=== PATIENT | male | born 1960 | race Caucasian/White ===

== ENCOUNTER 2024-04-26 16:03 | Emergency (ER) | payer BC, SELFPAY ==
[2024-04-26 16:13] VITALS: BP 146/100
[2024-04-26 17:07] LABS: ALT (SGPT) 54 U/L (0-50); AST (SGOT) 47 U/L (17-59); Albumin 4.6 g/dl (3.5-5.0); Alkaline Phosphatase 74 U/L (38-126); Blood Urea Nitrogen 13 mg/dl (9-20); Calcium 9.9 mg/dl (8.4-10.2); Carbon Dioxide 33 mmol/L (22-30); Chloride 97 mmol/L (98-107); Glucose 160 mg/dl (70-99); Potassium 5.1 mmol/L (3.5-5.1); Sodium 138 mmol/L (135-145); Total Bilirubin 0.9 mg/dl (0.2-1.3); Total Protein 7.5 g/dl (6.3-8.2); eGFR > 60.00
[2024-04-26 17:18] LABS: NT-proBNP < 20.0 pg/ml; Troponin I < 0.012 ng/ml
[2024-04-26 17:38] LABS: % Basophils 0.4 % (0-2); % Eosinophils 1.4 % (0-6); % Immature Granulocytes 0.6 % (0-0.5); % Lymphocytes 30.1 % (20.5-51.1); % Monocytes 7.5 % (1.7-9.3); Absolute Eosinophils 0.1 10^3/uL (0-0.7); Absolute Lymphocytes 1.5 10^3/uL (1.2-3.4); Absolute Monocytes 0.4 10^3/uL (0.1-0.6); Absolute Neutrophils 3.1 10^3/uL (1.4-6.5); Hematocrit 48.8 % (39.0-52.0); Hemoglobin 16.3 g/dL (13.0-18.0); Mean Corp Hgb Conc. 33.4 g/dL (33.0-37.0); Mean Corpuscular Volume 92.8 fL (80.0-94.0); Nucleated Red Blood Cells % 0 % (-); Platelet Count 195 10^3/uL (130-400); Red Blood Cell Count 5.26 10^6/uL (4.70-6.10); Red Cell Dist. Width 13.7 % (11.5-14.5); White Blood Cell Count 5.1 10^3/uL (4.8-10.8)
[2024-04-26] MEDS: ANCEF 10 IV (19:45)
--- NOTE | 2024-04-26 19:55 | ED.GENMED ---
History of Present Illness
General
Chief Complaint: Swelling
Time Seen by Provider: 04/26/24 18:55
History of Present Illness
History of Present Illness:
63-year-old male presents to the emergency department for evaluation of bilateral leg swelling associated with red discoloration and pain. He notes that he has been increasingly sedentary recently due to chronic back pain and spends a large portion
of his day in a recliner chair. The erythema to the legs has progressively worsened since the onset. He has had tactile fevers and chills. Denies any nausea vomiting or diarrhea. No known wounds or injuries to the areas.
Review of Systems
Review of Systems
Allergies reviewed?: Yes
All Other Systems: ROS reviewed and negative except as documented in HPI and ROS
Phy Exam
Physical Exam
Physical Exam:
GEN: Well appearing, NAD, WDWN
HEENT: Oral mucosa moist, no scleral icterus
Cardiac: Regular rate and rhythm, no murmurs
Lung: No respiratory distress, no tachypnea, lungs clear to auscultation bilaterally
MSK: Diffuse edema of bilateral lower extremities with circumferential erythema extending from the midfoot to the proximal alfaro bilaterally, markedly tender to palpation anteriorly. Calf compartments are soft x 4 bilaterally, no pain with passive
range of motion of the ankles or knees
Skin: Good color, no pallor or jaundice, no rashes
Neuro: AO x3, moves all extremities freely
Psych: Calm, cooperative
Scores
Heart Failure Risk
Heart Failure Risk Score: Not Applicable
Course
Orders/Labs/Results
Orders:
Orders
04/26/24 16:21
Electrocardiogram (*1) Urgent
Reason for Study: Shortness of Breath
EKG- Treatment ONCE
CXR2 [CR Chest - 2 Views ] Urgent
Comment:
Reason For Exam: sob
04/26/24 16:31
Complete Blood Count/With Diff Urgent
Comprehensive Metabolic Panel Urgent
NT-proBNP Urgent
Troponin I Urgent
04/26/24 19:26
CeFAZolin 2 GRAM [Ancef] 2 grams in 10 ml IV NOW
Venous Doppler Lwr Ext Bilat [US Periph Venous LOWER Ext Cristhian] Urgent
Comment:
Reason For Exam: leg edema
04/26/24 20:07
Oxycodone [Roxicodone] 20 mg PO NOW STA
Abnormal Lab Results
04/26/24
16:31
Immature Gran % 0.6 H %
(0-0.5)
Chloride 97 L mmol/L
(98-107)
Carbon Dioxide 33 H mmol/L
(22-30)
Glucose 160 H mg/dl
(70-99)
ALT 54 H U/L
(0-50)
04/26/24 16:31
04/26/24 16:31
Vital Signs
Initial and Last Documented VS:
Initial Vital Signs
Temp Pulse Resp BP Pulse Ox
98.3 F 85 16 146/100 95
04/26/24 16:13 04/26/24 16:13 04/26/24 16:13 04/26/24 16:13 04/26/24 16:13
Last Documented Vital Signs
Temp Pulse Resp BP Pulse Ox
98.3 F 85 16 146/100 95
04/26/24 16:13 04/26/24 16:13 04/26/24 16:13 04/26/24 16:13 04/26/24 16:13
MDM/Problems Addressed
MDM/Problems Addressed:
Likely cellulitis due to multiple minor skin abrasions and wounds and worsening due to sedentary lifestyle. No evidence of DVT. I did suggest to the patient that he should be admitted due to the bilateral and circumferential nature however he
declines at this time. He is clinically stable and there is no sign of sepsis thus no urgent need for admission, still will start broad-spectrum antibiotics, close ED return parameters discussed
*Critical Care Note
Total Time (30-74mins, 75-104mins- exclusive of procedures): Not Applicable
ED Attending Note
-
Portions of this chart may have been created with voice recognition software.� Occasional wrong word or��sound alike� substitutions may have occurred due to the inherent limitations of voice recognition software.
Discharge Plan
Departure
Patient Disposition: Home (Routine Discharge)
Date of Disposition: 04/26/24
Time of Disposition: 22:09
Patient with high blood pressure during this ER visit?: No
Discharge Problem:
Bilateral lower leg cellulitis
Instructions: Cellulitis (skin infection) in adults - ED discharge instructions
Prescriptions:
New
cephalexin 500 mg capsule
500 mg PO QID 10 Days Qty: 40 0RF
sulfamethoxazole-trimethoprim [Bactrim DS] 800-160 mg tablet
1 tab PO Q12H Qty: 20 0RF
No Action
indomethacin 50 mg Capsule
50 mg PO DAILY
oxycodone 20 mg Tablet
20 mg PO QID
oxycodone [OxyContin] 30 mg Tablet,Oral Only,Ext.Rel.12 Hr
30 mg PO BID
Referrals:
Dorian Yañez MD [Family Provider] -
Activity Restrictions/Additional Instructions:
DO NOT HESITATE TO RETURN IF SYMPTOMS WORSEN
Interventions
Interventions:
*Risk Screen - Suicide Last Done: 04/26/24 16:13
*Neglect/Abuse Screening Last Done: 04/26/24 16:13
ED- Fall Risk Assessment Last Done: 04/26/24 19:48
*Nursing Disposition Last Done: 04/26/24 22:28
ED- Cardiac Assessment Last Done: 04/26/24 19:48
ED- Pulmonary Assessment Last Done: 04/26/24 19:48
ED-Skin Assessment Last Done: 04/26/24 19:48
Discharge Date and Time
Discharge Date/Time: 04/26/24 22:29
Print Language: SLOVAK
[2024-04-26] MEDS: ROXICODONE 20 MG PO (20:15)
== END 2024-04-26 22:29 | disposition home or self-care (01) ==
LOC: EMR 16:03
PROVIDERS: Emergency Medicine; EMERGENCY PHYSICIAN Emergency Medicine; FAMILY PHYSICIAN Internal Medicine
DX: L03.116 Cellulitis of left lower limb (principal); L03.115 Cellulitis of right lower limb
CPT/HCPCS: 99285; 96374; 71046; 80053; 83880; 84484; 85025; 93005; 93970